=== PATIENT | male | born 1950 | race Hispanic/Latino ===

== ENCOUNTER 2025-04-07 05:56 | Day surgery (SDC) | payer MEDICARE ==
[~2025-04-07] VITALS: Ht 157.5 cm; Wt 64.4 kg
[2025-04-07] VITALS (10 sets, daily range): BP systolic 124–154; BP diastolic 56–65; PULSE 51–59; RESP 12–18; TEMP 97.2–97.5
[2025-04-07] MEDS ORDERED: OMEP40CA21 PO (06:32)
[2025-04-07] MEDS ORDERED: NADO20TA37 PO (06:32)
[2025-04-07] MEDS ORDERED: LACT-441 PO (06:32)
[2025-04-07] MEDS: 0.9%NACL 1000ML 1,000 ML IV ONE (06:32)
[2025-04-07] MEDS ORDERED: MULT-1289 PO (06:32)
[2025-04-07] MEDS ORDERED: CHOL200013 PO (06:32)
== END 2025-04-07 09:30 | disposition home or self-care (01) ==
LOC: DAH 05:56 → ENDO 05:56
PROVIDERS: ATTEND Internal Medicine Gastroenterology
DX: K74.60 Unspecified cirrhosis of liver (principal); I85.10 Secondary esophageal varices without bleeding; K29.50 Unspecified chronic gastritis without bleeding; K31.89 Other diseases of stomach and duodenum; K31.A0 Gastric intestinal metaplasia, unspecified; C22.9 Malignant neoplasm of liver, not specified as primary or secondary; R93.2 Abnormal findings on diagnostic imaging of liver and biliary tract; R14.0 Abdominal distension (gaseous); K64.8 Other hemorrhoids; I10 Essential (primary) hypertension; K76.6 Portal hypertension; Z88.0 Allergy status to penicillin; Z90.49 Acquired absence of other specified parts of digestive tract; Z79.899 Other long term (current) drug therapy
CPT/HCPCS: 43244; 43239; J7030 ×2; J2704; A4620; A4215; A4223; A7002; A4222; A4221; A4663; A4606; J3490

== ENCOUNTER 2025-05-26 06:30 | Day surgery (SDC) | payer MEDICARE ==
[2025-05-26] VITALS (11 sets, daily range): BP systolic 102–151; BP diastolic 47–61; PULSE 44–50; RESP 12–18; TEMP 97.3–97.9
[~2025-05-26] VITALS: Ht 160 cm; Wt 64.4 kg
[~2025-05-26 06:30] MED LIST: CHOL200013 PO; LACT-441 PO; MULT-1289 PO; NADO20TA37 PO; OMEP40CA21 PO
[2025-05-26] MEDS: 0.9%NACL 1000ML 1,000 ML IV ONE (07:22)
== END 2025-05-26 10:13 | disposition home or self-care (01) ==
LOC: ENDO 06:30 → DAH 06:30 → ENDO 10:13
PROVIDERS: ATTEND Internal Medicine Gastroenterology
DX: K74.60 Unspecified cirrhosis of liver (principal); K31.89 Other diseases of stomach and duodenum; K29.50 Unspecified chronic gastritis without bleeding; I85.10 Secondary esophageal varices without bleeding; K76.6 Portal hypertension; I10 Essential (primary) hypertension; C22.9 Malignant neoplasm of liver, not specified as primary or secondary; K31.A19 Gastric intestinal metaplasia without dysplasia, unspecified site; K64.8 Other hemorrhoids; Z88.0 Allergy status to penicillin; Z90.49 Acquired absence of other specified parts of digestive tract; Z79.899 Other long term (current) drug therapy
CPT/HCPCS: 43239; J7030; J2704; A4620; A4215 ×2; A4223; A4222; A4221; A4663; A4606; J3490